=== PATIENT | female | born 1995 ===

== ENCOUNTER 2018-12-10 12:46 | Inpatient (IN) | payer OTHER ==
[~2018-12-10] VITALS: Ht 170.2 cm; Wt 81.2 kg
[2018-12-10] MEDS ORDERED: PRENATAL TABLE1 EAC2 PO (14:53)
[2018-12-10] MEDS ORDERED: VALACYCLOVIR500 MG PO (15:01)
== END 2018-12-13 13:31 | disposition home or self-care (01) | DRG 788 ==
LOC: OB/GYN 12:46 → LDR 12:46 → O/R 18:10 → OB/GYN 18:44
PROVIDERS: ADMIT Obstetrics & Gynecology
PROC: 4A0HXFZ Measurement of Products of Conception, Cardiac Rhythm, External Approach (ICD-10-PCS; 2018-12-10)
PROC: 10D00Z1 Extraction of Products of Conception, Low, Open Approach (ICD-10-PCS; principal; 2018-12-10 13:00)
DX: O82 Encounter for cesarean delivery without indication (principal); O32.1XX0 Maternal care for breech presentation, not applicable or unspecified; Z3A.38 38 weeks gestation of pregnancy; Z37.0 Single live birth